=== PATIENT | female | born 1935 | race Caucasian/White ===

== ENCOUNTER → 2024-11-11 | Outpatient (CLI) | payer MEDICARE, SELFPAY ==
--- OUTSIDE RECORDS SUMMARY | 2024-10-08 08:47 | XMS RPT_ITS ---
Author Name Auto Generated Organization [facility] Care Team Providers Care Grounds Cleaner Name Role Phone TIFFANY OSBORNE Attending Unavailable TIFFANY OSBORNE Primary Care Unavailable TIFFANY OSBORNE Attending Unavailable TIFFANY OSBORNE Primary Care Unavailable TIFFANY OSBORNE Attending Unavailable TIFFANY OSBORNE Primary Care Unavailable TIFFANY OSBORNE Primary Care Unavailable PROBLEMS DATE TYPE CONDITION / CODE ATTENDING STATUS [facility] 07/05/2024 Admitting Diagnosis Other constipation / K59.09(ICD-10) TIFFANY OSBORNE [facility] 03/23/2022 Admitting Diagnosis Stress incontinence (female) (male) / N39.3(ICD-10) TIFFANY OSBORNE [facility] 10/08/2024 Admitting Diagnosis 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 12/08/2023 Admitting Diagnosis Encounter for screening for other viral diseases / Z11.59(ICD-10) [facility] 12/08/2023 Admitting Diagnosis Encounter for screening for lipoid disorders / Z13.220(ICD-10) NA [facility] 12/08/2023 Admitting Diagnosis Encounter for screening for cardiovascular disorders / Z13.6(ICD-10) NA [facility] 12/08/2023 Admitting Diagnosis Encounter for immunization / Z23(ICD-10) TIFFANY OSBORNE [facility] PROCEDURES No Procedure Records Found RESULTS COMPREHENSIVE METABOLIC PANE L W/ANION GAP Collected: 07/05/2024 11:57 AM Status: F Source: [facility] Order Comment: FASTING:NO FASTING: NO TYPE CODE TESTS RESULT OUT OF RANGE REFERENCE UNITS LAB [id number] GLUCOSE 77 Normal 65-99 mg/dL Result Comment: Fasting reference interval LAB [id number] UREA NITROGEN (BUN) 14 Normal 7-25 mg/dL LAB [id number] CREATININE 0.76 Normal 0.60-0.95 mg/dL LAB [id number] EGFR 75 Normal > OR = 60 mL/min/1 .73m2 LAB [id number] SODIUM 140 Normal 135-146 mmol/L LAB 19807652 POTASSIUM 4.2 Normal 3.5-5.3 mmol/L LAB 50823308 CHLORIDE 104 Normal 98-110 mmol/L LAB 97369343 CARBON DIOXIDE 26 Normal 20-32 mmol/L LAB [id number] ELECTROLYTE BALANCE 10 Normal 7-17 mmol/L (calc) LAB 89240866 CALCIUM 9.2 Normal 8.6-10.4 mg/dL LAB 37037581 PROTEIN, TOTAL 6.6 Normal 6.1-8.1 g/dL LAB 48003756 ALBUMIN 4.0 Normal 3.6-5.1 g/dL LAB 91139367 BILIRUBIN, TOTAL 1.1 Normal 0.2-1.2 mg/dL LAB 67737401 ALKALINE PHOSPHATASE 79 Normal 37-153 U/L LAB [id number] AST 18 Normal 10-35 U/L LAB [id number] ALT 10 Normal 6-29 U/L Performed By: #### 96018, 16 154, 00801 #### [facility] [address], [address] [place] [id number] Senior Product Manager: Lito Akhtar MD TSH W/REFLEX TO FT4 Collected: 07/06/19 11:57 AM Status: I Source: [facility] TYPE CODE TESTS RESULT OUT OF RANGE REFERENCE UNITS LAB [id number] TSH W/REFLEX TO FT4 Performed By: #### 68407, 16 802, 49726 #### [facility] [address], [address] [place] [address] Senior Product Manager: Lito Akhtar MD HEMOGLOBIN A1C WITH EAG Collected: 06/14 11:57 AM Status: F Source: [facility] TYPE CODE TESTS RESULT OUT OF RANGE REFERENCE UNITS LAB [id number] HEMOGLOBIN A1c 5.6 Normal <5.7 % Result Comment: For the purp ose of screening for the presence of diabetes: <5.7% Consistent with the absence of diabetes 5.7-6.4% Consistent with increased risk for diabetes (prediabetes) > or =6.5% Consistent with diabetes This assay result is consistent with a decreased risk of diabetes. Currently, no consensus exists regarding use of hemoglobin A1c for diagnosis of diabetes in children. According to [place] Diabetes Association (ADA) guidelines, hemoglobin A1c <7.0% represents optimal control in non- diabetic patients. Different metrics may apply to specific patient populations. Standards of Medical Care in Diabetes(ADA). LAB [id number] eAG (mg/dL) 114 mg/dL LAB 55576050 eAG (mmol/L) 6.3 mmol/L Performed By: #### 48079, 16 802, 99017 #### [facility] [address], [address] [place] [phone] Senior Product Manager: Lito Akhtar MD COMPLETE BLOOD COUNT W AUTO DIFFERENTIAL PANEL Collected: 12/08/2023 10:09 AM Status: F Source: [facility] TYPE CODE TESTS RESULT OUT OF RANGE REFERENCE UNITS LAB 6690-2(LOINC) Leukocytes 7.3 4.4-11.3 x10*3/ uL LAB 25801-0(LOINC ) Erythrocytes.nuc leated/100 leukocytes 0.0 0.0-0.0 /100 WBCs LAB 789-8(LOINC) Erythrocytes 4.70 4.00-5.20 x10* 6/uL LAB 718-7(LOINC) Hemoglobin 13.5 12.0-16.0 g/dL LAB 4544-3(LOINC) Hematocrit 42.9 36.0-46.0 % LAB 787-2(LOINC) Erythrocyte mean corpuscular volume 91 80-100 fL LAB 785-6(LOINC) Erythrocyte mean corpuscular hemoglobin 28.7 26.0-34.0 pg LAB 786-4(LOINC) Erythrocyte mean corpuscular hemoglobin concentration 31.5 Low 32.0-36.0 g/dL LAB 788-0(LOINC) Erythrocyte distribution width 13.3 11.5-14.5 % LAB 777-3(LOINC) Platelets 266 150-450 x10*3/uL LAB 770-8(LOINC) Neutrophils/100 leukocytes 59.3 40.0-80.0 % LAB 82150-1(LOINC ) Granulocytes.imm ature/100 leukocytes 0.3 0.0-0.9 % Result Comment: Immature Gra nulocyte Count (IG) includes promyelocytes, myelocytes and metamyelocytes but does not include bands. Percent differential counts (%) should be interpreted in the context of the absolute cell counts (cells/UL). LAB 736-9(LOINC) Lymphocytes/100 leukocytes 27.2 13.0-44.0 % LAB 5905-5(LOINC) Monocytes/100 leukocytes 9.9 2.0-10.0 % LAB 713-8(LOINC) Eosinophils/100 leukocytes 2.5 0.0-6.0 % LAB 706-2(LOINC) Basophils/100 leukocytes 0.8 0.0-2.0 % LAB 751-8(LOINC) Neutrophils 4.30 1.60-5.50 x10*3 /uL Result Comment: Percent diff erential counts (%) should be interpreted in the context of the absolute cell counts (cells/uL). LAB 01959-5(LOINC ) Granulocytes.imm ature 0.02 0.00-0.50 x10*3/uL LAB 731-0(LOINC) Lymphocytes 1.97 0.80-3.00 x10*3 /uL LAB 742-7(LOINC) Monocytes 0.72 0.05-0.80 x10*3/u L LAB 711-2(LOINC) Eosinophils 0.18 0.00-0.40 x10*3 /uL LAB 704-7(LOINC) Basophils 0.06 0.00-0.10 x10*3/u L Performed By: #### 11830-7 # ### CHO VANDANA ([id number]) [facility] ([facility]) [address] [place] [address] COMPREHENSIVE METABOLIC 2000 PANEL Collected: 12/08/2023 10:09 AM Status: F Source: [facility] TYPE CODE TESTS RESULT OUT OF RANGE REFERENCE UNITS LAB 2345-7(LOINC) Glucose 76 74-99 mg/dL LAB 2951-2(LOINC) Sodium 141 136-145 mmol/L LAB 2823-3(LOINC) Potassium 4.4 3.5-5.3 mmol/L LAB 2075-0(LOINC) Chloride 107 98-107 mmol/L LAB 2028-9(LOINC) Carbon dioxide 27 21-32 mmo l/L LAB 25246-5(LOINC ) Anion gap 11 10-20 mmol/L LAB 3094-0(LOINC) Urea nitrogen 14 6-23 mg/d L LAB 2160-0(LOINC) Creatinine 0.81 0.50-1.05 mg/dL LAB 43461-2(LOINC ) Glomerular filtration rate/1.73 sq M.predicted 70 >60 mL/min/ 1.73m*2 Result Comment: Calculations of estimated GFR are performed using the 2020 CKD- EPI Study Refit equation without the race variable for the IDMS-Traceable creatinine methods. https://jasn.asnjournals.org/content/early//ASN.8660923364 LAB 44262-5(LOINC ) Calcium 9.3 8.6-10.3 mg/dL LAB 24032-1(LOINC ) Albumin 3.9 3.4-5.0 g/dL LAB 6768-6(LOINC) Alkaline phosphatase 74 33-136 U/L LAB 2885-2(LOINC) Protein 6.6 6.4-8.2 g/dL LAB 67930-5(LOINC ) Aspartate aminotransferase 19 9-39 U/L LAB 1975-2(LOINC) Bilirubin 1.8 High 0.0-1.2 mg/dL LAB 1743-4(LOINC) Alanine aminotransferase 14 7-45 U/L Result Comment: Patients gary ated with Sulfasalazine may generate falsely decreased results for ALT. Performed By: #### 63031-2 # ### CHO AGUILADONG ([id number]) [facility] ([facility]) [address] [place] [address] LIPID 1996 PANEL Collected: 12/08/2023 10:09 AM Stat us: F Source: [facility] TYPE CODE TESTS RESULT OUT OF RANGE REFERENCE UNITS LAB 3-3(LOINC) Cholesterol 141 0-199 mg/dL Result Comment: Age Desirabl e Borderline High High 0-19 Y 0 - 169 170 - 199 >/= 200 20-24 Y 0 - 189 190 - 224 >/= 225 >24 Y 0 - 199 200 - 239 >/= 240 All ranges are based on fasting samples. Specific therapeutic targets will vary based on patient-specific cardiac risk. Pediatric guidelines reference:Pediatrics 2011, 128(S5).Adult guidelines reference: NCEP ATPIII Guidelines,RUFINA 2001, 258:8726-04 Venipuncture immediately after or during the administration of Metamizole may lead to falsely low results. Testing should be performed immediately prior to Metamizole dosing. LAB 2084-9(LOINC) Cholesterol.in HDL 49.0 mg/dL Result Comment: Age Very Low Low Normal High 0-19 Y < 35 < 40 40-45 ---- 20-24 Y ---- < 40 >45 ---- >24 Y ---- < 40 40-60 >60 LAB CHHDL CHOLESTEROL/HDL RATIO 2.9 NA Result Comment: Ref Values Desirable < 3.4 High Risk > 5.0 LAB 17832-6(LOINC) Cholesterol.in LDL 77 <=99 mg/dL Result Comment: Near Borderl ine AGE Desirable Optimal High High Very High 0-19 Y 0 - 109 --- 110-129 >/= 130 ---- 20-24 Y 0 - 119 --- 120-159 >/= 160 ---- >24 Y 0 - 99 100-129 130-159 160-189 >/=190 LAB VLDL VLDL 15 0-40 mg/dL LAB 2571-8(LOINC) Triglyceride 75 0-149 mg/dL Result Comment: Age Desirabl e Borderline High High Very High 0 D-90 D 19 - 174 ---- ---- ---- 91 D- 9 Y 0 - 74 75 - 99 >/= 100 ---- 10-19 Y 0 - 89 90 - 129 >/= 130 ---- 20-24 Y 0 - 114 115 - 149 >/= 150 ---- >24 Y 0 - 149 150 - 199 200- 499 >/= 500 Venipuncture immediately after or during the administration of Metamizole may lead to falsely low results. Testing should be performed immediately prior to Metamizole dosing. LAB NHDL NON HDL CHOLESTEROL 92 0-149 mg/dL Result Comment: Age Desirabl e Borderline High High Very High 0-19 Y 0 - 119 120 - 144 >/= 145 >/= 160 20-24 Y 0 - 149 150 - 189 >/= 190 ---- >24 Y 30 mg/dL above LDL Cholesterol goal Performed By: #### 26866-2 # ### TAMMIE ROSS ([id number]) [facility] ([facility]) [address] [place] [address] TSH WITH REFLEX TO FREE T4 I F ABNORMAL Collected: 12/08/2023 10:09 AM Status: F Source: [facility] Order Comment: TSH testing i s performed using different testing methodology at [facility] than at other [facility]. Direct result comparisons should only be made within the same method. TYPE CODE TESTS RESULT OUT OF RANGE REFERENCE UNITS LAB 3016-3(LOINC) Thyrotropin 1.73 0.44-3.98 mIU/ L Performed By: #### THYDS ### # TAMMIE ROSS ([id number]) [facility] ([facility]) [address] [place] [address] COBALAMINS Collected: 10:09 AM Status: F Source: [facility] TYPE CODE TESTS RESULT OUT OF RANGE REFERENCE UNITS LAB 2132-9(LOINC) Cobalamins 368 211-911 pg/mL Performed By: #### 2132-9 ## ## TAMMIE ROSS ([id number]) [facility] ([facility]) [address] [place], [place] [id number] HEMOGLOBIN A1C/HEMOGLOBIN.TOTAL Collect ed: 12/08/2023 10:09 AM Status: F Source: [facility] Order Comment: Diagnosis of Diabetes-Adults Non-Diabetic: < or = 5.6% Increased risk for developing diabetes: 5.7-6.4% Diagnostic of diabetes: > or = 6.5% TYPE CODE TESTS RESULT OUT OF RANGE REFERENCE UNITS LAB 4548-4(LOINC ) Hemoglobin A1c/Hemoglob in.total 5.6 See comment % LAB 39873-6(LOIN C) Estimated average glucose 114 Not Established mg/dL Performed By: #### 4548-4 ## ## MALINI Vasquez ([id number]) [facility] ([facility]) [address] [place] [id number] HEPATITIS C VIRUS AB Collected: 024 10:09 AM Status: F Source: [facility] TYPE CODE TESTS RESULT OUT OF RANGE REFERENCE UNITS LAB 92986-1(LOINC) Hepatitis C virus Ab NON-REACTIVE Nonreactive Result Comment: Results from patients taking biotin supplements or receiving high-dose biotin therapy should be interpreted with caution due to possible interference with this test. Providers may contact their local laboratory for further information. Performed By: #### 62304-7 # ### MALINI Vasquez ([id number]) [facility] ([facility]) [id number] [place] [id number] ALLERGIES DATE TYPE / CODE NAME / CODE REACTION SEVERITY SOURCE SYSTEMIC/[id number]( SNOMED CT) NO KNOWN ALLERGIES [facility] ENCOUNTERS ADMIT/DISCHARGE ACCOUNT NUMBER ADMITTING ENCOUNTER CLASS LOCATION SOURCE 10/08/2024/ 5 [id number] Ambulatory Building:[address] Ambulatory 07/05/2024/ 5 [id number] Ambulatory Building:[address] Ambulatory 12/08/2023/ 4 [id number] Ambulatory Building:[facility] 12/08/2023/ 4 [id number] Ambulatory Building:[address] Ambulatory PAYERS ENCOUNTER GUARANTOR PAYER SUBSCRIBER SOURCE 10/08/2024 COTY BARDALESB: [id number] STATE [address] [id number]: () Primary Insurance:ANTHEM MEDICAREPolicy Number: [id number] Date:2021-02-13 COTY Carroll CUTLIPDOB: [id number] [address] [place] [phone]: () [facility] 07/05/2024 COTY Carroll CUTLIPDOB: [address] [place] [phone]: (HP) Primary Insurance:ANTHEM MEDICAREPolicy Number: [id number] Date:2021-02-13 COTY Carroll CUTLIPDOB: [id number] [address] [place] [phone]: () [facility] 12/08/2023 COTY Carroll CUTLIPDOB: [address] [place] [phone]: () Primary Insurance:ANTHEM MEDICAREPolicy Number: [id number] Date:2021-02-13 COTY Carroll CUTLIPDOB: [id number] [address] [place] [phone]: () [facility] 12/08/2023 COTY Carroll CUTLIPDOB: [address] [place] [phone]: () Primary Insurance:ANTHEM MEDICAREPolicy Number: [id number] Date:2021-02-13 COTY Carroll CUTLIPDOB: [id number] [address] [place] [phone]: () [facility]
--- NOTE | 2024-11-11 15:24 | CT_ITS ---
PROCEDURE: SOFT TISSUE NECK W/WO CONTRAST 11/11/2024 REASON FOR EXAM: R PAROTID MASS TECHNIQUE: Procedure Code: CTNEWW Modality: CT Procedure: SOFT TISSUE NECK W/WO CONTRAST CONTRAST: Isovue 370 VOLUME: 75 mL One or more dose reduction techniques were used (e.g., Automated exposure control, adjustment of the mA and/or kV according to patient size, use of iterative reconstruction technique). RADIATION DOSE SUMMARY: CTDlvol: 37 mGy DLP: 1214 mGycm COMPARISON: None FINDINGS: Airway: Midline and patent. Salivary glands: Within the superficial lobe of the right parotid gland in the area marked there is a small, reniform mass that appears to be solid and hyperdense relative to background gland precontrast. Enhancement is not particularly brisk. The lesion measures approximately 10 x 6 x 10 mm. A second similar lesion is seen immediately anterior to the tragus also in the superficial lobe measuring 7 x 5 x 10 mm. No cystic component is seen involving either focus. No additional lesion is seen in either gland. Lymph nodes: None appear enlarged. Thyroid: A large mass is seen occupying much of the right thyroid lobe measuring 3.0 x 1.9 x 2.8 cm. Left lobe thyroid is unremarkable. Vasculature: Patent. The right brachiocephalic is tortuous. Mild atherosclerotic plaque of the origin of the internal carotid artery is less than 10% narrowing. Orbits: There has possibly been left lens replacement. Otherwise, the globes are unremarkable. Paranasal sinuses and mastoids: Pneumatization of the petrous portion of the temporal bones. Otherwise clear. Lung apices: Clear. Upper mediastinum: No mass. Bones: Multilevel degenerative changes of the spine. CT/Soft Tissue Neck W/WO Contrast IMPRESSION: There are two small masses in the superficial lobe of the right parotid gland. One in the area of palpable concern and another immediately anterior to the tragus. Differential includes pleomorphic adenoma, Warthin's tumor. Given the relative small size and reniform shape intraparotid lymph node is a consideration but favored less. Any additional imaging should be on a clinical basis in this 89-year-old patient. Reading Location: [facility]
== END | disposition home or self-care (01) ==
PROVIDERS: PCP Family Medicine; Referring Provider Otolaryngology; Visit Provider Otolaryngology
DX: R22.0 Localized swelling, mass and lump, head (principal)
CPT/HCPCS: 70492; Q9967